=== PATIENT | male | born 1960 | race Caucasian/White ===

== ENCOUNTER 2019-02-09 19:12 | Inpatient (IN) | payer BC ==
[~2019-02-09] VITALS: Ht 188 cm; Wt 123.1 kg
[2019-02-09] MEDS ORDERED: ACETAMINOPHEN 500 MG TAB PO ONE (19:30)
[2019-02-09 20:08] LABS: Urine Bacteria FEW /hpf (None Seen); Urine Blood 2+ /uL (Negative); Urine Mucus FEW (None Seen); Urine Specific Gravity 1.028 (1.001-1.035); Urine WBC 127 /hpf (0 - 3)
[2019-02-09 22:06] LABS: Basophils # (auto) 0 uL; Basophils % (auto) 0.1 % (0.0-2.0); Eosinophils # (auto) 0 uL; Hemoglobin 15.9 g/dL (13.5-17.5); Lymphocytes # (auto) 0.4 uL; Lymphocytes % (auto) 2.5 % (10.0-50.0); Mean Corpuscular Hemoglobin 29.3 pg (28.0-32.0); Mean Corpuscular Hgb Conc. 34.6 g/dL (32.0-36.0); Mean Corpuscular Volume 84.7 fL (80.0-100.0); Monocytes # (auto) 0.6 uL; Monocytes % (auto) 3.6 % (0.0-12.0); Neutrophils # (auto) 15.4 uL; Neutrophils % (auto) 93.8 % (37.0-80.0); Platelet Count (auto) 208 10^3/uL (140-450); Red Blood Cells 5.43 10^6/uL (4.5-5.90); Red Cell Distribution Width 13.3 % (11.8-14.3); White Blood Cell 16.5 10^3/uL (4.4-10.8)
[2019-02-09 22:14] LABS: Albumin 3.8 g/dL (3.4-5.0); BUN/Creatinine Ratio 19.1; Calcium 9.2 mg/dL (8.5-10.1); Potassium 3.3 mmol/L (3.5-5.1)
[2019-02-09 22:16] LABS: Lactic Acid w/Reflex 2.5 mmol/L (0.4-2.0)
[2019-02-09 22:17] LABS: Total Protein 7.6 g/dL (6.4-8.2)
[2019-02-09] MEDS ORDERED: PIPERACILLIN-TAZOB 3.375GM 100 ML IV ONE (23:15)
[2019-02-09] MEDS ORDERED: VANCOMYCIN 1GM/250ML 250 ML IV ONE (23:15)
[2019-02-09] MEDS ORDERED: SODIUM CHLORIDE 0.9% 1,000 ML IV ONE (23:15)
[2019-02-10] MEDS ORDERED: TEMAZEPAM 15 MG CAP PO PRN (01:00)
[2019-02-10] MEDS: SODIUM CHLORIDE 0.9% 1,000 ML IV SCH ×3 (01:00→16:09)
[2019-02-10] MEDS ORDERED: DEXTROSE (50%) 50ML SYRG IV PRN (01:00)
[2019-02-10] MEDS ORDERED: ONDANSETRON HCL 4 MG/2 ML VIAL IV PRN (01:00)
[2019-02-10] MEDS ORDERED: LEVOFLOXACIN 500MG 100 ML IV ONE (02:00)
[2019-02-10] MEDS: ACETAMINOPHEN 325 MG TAB PO PRN ×4 (02:03→21:58)
[2019-02-10] MEDS ORDERED: MORPHINE SULF INJ 2 MG/ML SYRINGE 1ML IV PRN (02:15)
[2019-02-10] MEDS ORDERED: NITROGLYCERIN 0.4 MG SL TAB SL PRN (02:15)
[2019-02-10 03:28] VITALS: BP 124/63
--- NOTE | 2019-02-10 03:45 | NUR ---
received pt from er nurse poc reviewed
[2019-02-10] MEDS ORDERED: ATO40T PO (04:04)
[2019-02-10] MEDS ORDERED: LOSA100T22 PO (04:04)
[2019-02-10] MEDS ORDERED: METF-372 PO (04:04)
--- NOTE | 2019-02-10 04:55 | NUR ---
pt started converted to sinus tack 130, ax temp taken pts temp 103.4 ax aggressive cooling measures taken pt moved to rm 233 a colder room, pt started to become confused became nauseated threw up @ 400 dark emesis, zofran given for nausea
[2019-02-10 05:34] VITALS: BP 124/63
[2019-02-10] MEDS: PANTOPRAZOLE 40 MG TAB PO SCH (06:00)
[2019-02-10] MEDS: InsuLIN REG 1unit/0.01ml Soln (100units/ml) SC SCH ×4 (06:00→23:47)
[2019-02-10] MEDS: ACCU-CHEK COMFORT CURVE STRIP VI SCH ×4 (06:17→23:36)
--- NOTE | 2019-02-10 06:20 | NUR ---
hospitalist paged for orders zofran not effective
--- NOTE | 2019-02-10 06:25 | NUR ---
temp 102.6 ax b/p 124/63 [facility]
[2019-02-10] MEDS ORDERED: SODIUM CHLORIDE 0.9% 500 ML IV ONE (06:30)
[2019-02-10] MEDS ORDERED: PROMETHAZINE HCL 25 MG/ML 1ML IV ONE (06:30)
--- NOTE | 2019-02-10 06:40 | NUR ---
phenergan and 500 ml bolus given as ordered
--- NOTE | 2019-02-10 06:49 | NUR ---
resting quietly at this time no s/s of shivering or nausea, cooling measures continue
--- NOTE | 2019-02-10 08:00 | NUR ---
Opening Shift Note Assumed care of patient, awake and alert. No S/S of distress/SOB or pain. Instructed on POC and to call for assist PRN, will continue to monitor for changes Q1hr and PRN.
[2019-02-10 09:01] VITALS: BP 130/70
[2019-02-10] MEDS ORDERED: LOSARTAN POTASSIUM 50 MG TAB PO SCH (10:00)
--- NOTE | 2019-02-10 12:00 | NUR ---
Patient refused Insulin R SC administration for Accucheck-153mg/dl.
[2019-02-10 13:00] VITALS: BP 99/60
[2019-02-10] MEDS ORDERED: PIPERACILLIN-TAZOB 3.375GM 100 ML IV ONE (15:15)
[2019-02-10 16:51] LABS: BUN/Creatinine Ratio 16.7; Calcium 8.4 mg/dL (8.5-10.1); Potassium 4.4 mmol/L (3.5-5.1)
[2019-02-10 17:00] VITALS: BP 144/86
[2019-02-10] MEDS: PIPERACILLIN-TAZOB 3.375GM 100 ML IV SCH ×2 (18:25→23:35)
--- NOTE | 2019-02-10 19:24 | NUR ---
Opening Shift Note Assumed care of patient, awake and alert x 4. No S/S of distress/SOB. Bed is in lowest position and locked. Call light within reach. Board updated. Tele box number matches monitor and leads are in correct placement. Instructed on POC and to call for assist PRN, will continue to monitor for changes Q1hr and PRN.
[2019-02-10] MEDS: HYDROcodone-ACET 5/325MG TAB PO PRN (19:48)
--- NOTE | 2019-02-10 21:02 | NUR ---
Patient's temperature is 101.5 after administering Tylenol and Raven. Cooling measures started. Patient states he feels asymptomatic. Heart rate currently in the 110s. Will contact hospitalist if temperature does not go down.
[2019-02-10 21:16] VITALS: BP 126/73
--- NOTE | 2019-02-10 21:53 | NUR ---
Patient's temperature is 99.8 Cooling measures stopped. Will continue to monitor.
[2019-02-10] MEDS ORDERED: ATORVASTATIN 20 MG TAB PO SCH (22:00)
--- NOTE | 2019-02-10 22:58 | NUR ---
Patient's temperature is 98.0. Will continue to monitor.
[2019-02-11] MEDS ORDERED: LEVOFLOXACIN 500MG 100 ML IV SCH
[2019-02-11] MEDS: SODIUM CHLORIDE 0.9% 1,000 ML IV SCH ×3 (01:18→21:36)
[2019-02-11] MEDS: HYDROcodone-ACET 5/325MG TAB PO PRN (05:11)
[2019-02-11 05:20] VITALS: BP 125/72
[2019-02-11] MEDS: InsuLIN REG 1unit/0.01ml Soln (100units/ml) SC SCH ×4 (05:50→21:36)
--- NOTE | 2019-02-11 05:53 | NUR ---
patient refusing regular insulin per moderate sliding scale for blood glucose of 139 mg/dl because "I don't take insulin." Patient was educated on purpose of medication and it's possible side effects but patient is still choosing not to take medication.
[2019-02-11] MEDS: PANTOPRAZOLE 40 MG TAB PO SCH (05:59)
[2019-02-11] MEDS: PIPERACILLIN-TAZOB 3.375GM 100 ML IV SCH ×2 (05:59→11:43)
[2019-02-11] MEDS: ACCU-CHEK COMFORT CURVE STRIP VI SCH ×4 (06:00→21:36)
[2019-02-11 06:08] LABS: Basophils # (auto) 0 uL; Basophils % (auto) 0.2 % (0.0-2.0); Eosinophils # (auto) 0 uL; Eosinophils % (auto) 0.1 % (0.0-7.0); Hematocrit 42.2 % (41.0-53.0); Hemoglobin 14.8 g/dL (13.5-17.5); Lymphocytes # (auto) 0.6 uL; Lymphocytes % (auto) 5.6 % (10.0-50.0); Mean Corpuscular Hemoglobin 29.5 pg (28.0-32.0); Mean Corpuscular Hgb Conc. 35.1 g/dL (32.0-36.0); Mean Corpuscular Volume 83.9 fL (80.0-100.0); Monocytes # (auto) 0.5 uL; Neutrophils % (auto) 89.1 % (37.0-80.0); Nucleated Red Blood Cells % 0.1 %; Platelet Count (auto) 148 10^3/uL (140-450); Red Blood Cells 5.03 10^6/uL (4.5-5.90); Red Cell Distribution Width 13.1 % (11.8-14.3); White Blood Cell 10.1 10^3/uL (4.4-10.8)
[2019-02-11 06:27] LABS: BUN/Creatinine Ratio 17.2; Calcium 8.2 mg/dL (8.5-10.1); Potassium 3.5 mmol/L (3.5-5.1)
[2019-02-11 06:30] LABS: Magnesium 1.8 mg/dL (1.6-2.6)
--- NOTE | 2019-02-11 08:00 | NUR ---
Opening Shift Note Assumed care of patient, awake and alert. No S/S of distress/SOB or pain. Patient stated feeling better today than yesterday. Noted to have on and off fever still. Instructed on POC and to call for assist PRN, will continue to monitor for changes Q1hr and PRN.
[2019-02-11 09:00] VITALS: BP 118/68
[2019-02-11] MEDS: ACETAMINOPHEN 325 MG TAB PO PRN ×2 (09:36→18:51)
[2019-02-11] MEDS ORDERED: MAGNESIUM SULFATE 1GM/100ML 100 ML IV ONE (12:15)
[2019-02-11] MEDS ORDERED: DEXTROSE (50%) 50ML SYRG IV PRN (12:15)
[2019-02-11] MEDS ORDERED: cefTRIAXone 1GM/50ML D5W 50 ML IV ONE (12:15)
[2019-02-11 13:00] VITALS: BP 119/69
[2019-02-11 17:33] VITALS: BP 131/76
[2019-02-11 21:26] VITALS: BP 125/69
--- NOTE | 2019-02-11 21:56 | NUR ---
[facility] hospitalist to request pain medication be switched to a medication that does not contain Tylenol. Patient has been having a fever for over 24 hours off and on that is contained with Tylenol but patient is also reporting of a headache, 8 out of 10. Parrott is available fo the pain but the combined Tylenol in the Parrott with the Tylenol given for his fever is quite high, 3000 mg. Requesting alternative pain medication. Tylenol has not helped his headache, per patient. Patient also had a prostate biopsy on 02/08 and was ordered to not take aspirin or ibuprofen either.
--- NOTE | 2019-02-11 22:06 | NUR ---
Spoke to AISHWARYA Nava who ordered Morphine 2mg IV Once. Order repeated, verified, and placed.
[2019-02-11] MEDS ORDERED: MORPHINE SULF INJ 2 MG/ML SYRINGE 1ML IV ONE (22:30)
[2019-02-12] MEDS: HYDROcodone-ACET 5/325MG TAB PO PRN ×2 (04:03→08:42)
[2019-02-12 05:19] VITALS: BP 135/78
[2019-02-12 05:22] LABS: Basophils # (auto) 0 uL; Basophils % (auto) 0.3 % (0.0-2.0); Eosinophils # (auto) 0 uL; Eosinophils % (auto) 0.4 % (0.0-7.0); Hematocrit 40.6 % (41.0-53.0); Hemoglobin 14.3 g/dL (13.5-17.5); Lymphocytes # (auto) 0.8 uL; Lymphocytes % (auto) 10.8 % (10.0-50.0); Mean Corpuscular Hemoglobin 29.7 pg (28.0-32.0); Mean Corpuscular Hgb Conc. 35.2 g/dL (32.0-36.0); Mean Corpuscular Volume 84.4 fL (80.0-100.0); Monocytes # (auto) 0.7 uL; Neutrophils # (auto) 6.1 uL; Neutrophils % (auto) 79.5 % (37.0-80.0); Platelet Count (auto) 156 10^3/uL (140-450); Red Blood Cells 4.82 10^6/uL (4.5-5.90); Red Cell Distribution Width 13.2 % (11.8-14.3); White Blood Cell 7.6 10^3/uL (4.4-10.8)
[2019-02-12 05:35] LABS: Potassium 3.7 mmol/L (3.5-5.1)
[2019-02-12 05:39] LABS: BUN/Creatinine Ratio 16.9; Magnesium 2.2 mg/dL (1.6-2.6)
[2019-02-12] MEDS: InsuLIN REG 1unit/0.01ml Soln (100units/ml) SC SCH ×2 (05:54→11:30)
[2019-02-12] MEDS: PANTOPRAZOLE 40 MG TAB PO SCH (05:55)
[2019-02-12] MEDS: ACCU-CHEK COMFORT CURVE STRIP VI SCH ×2 (05:55→11:50)
[2019-02-12] MEDS: SODIUM CHLORIDE 0.9% 1,000 ML IV SCH (05:56)
[2019-02-12 08:00] VITALS: BP 130/70
[2019-02-12] MEDS: cefTRIAXone 1GM/50ML D5W 50 ML IV SCH (08:41)
[2019-02-12 09:00] VITALS: BP 133/82
[2019-02-12 13:00] VITALS: BP 156/89
[2019-02-12] MEDS: ACETAMINOPHEN 325 MG TAB PO PRN (16:56)
[2019-02-12 17:00] VITALS: BP 124/61
[2019-02-12] MEDS ORDERED: TAMSULOSIN HYDROCHLORIDE 0.4 MG CAP PO SCH (18:00)
--- NOTE | 2019-02-12 18:00 | NUR ---
Pt alert and oriented, showing no change from initial assessment. Pt medicated, times two, during this shift, for c/o headache, with good effectiveness. No other c/o pain or discomfort.
--- NOTE | 2019-02-12 19:05 | NUR ---
Opening Shift Note Assumed care of patient, awake and alert. No S/S of distress/SOB or pain. Instructed on POC and to call for assist PRN, will continue to monitor for changes Q1hr and PRN. Side rails up x2. Bed locked in lowest position. Call light within reach.
[2019-02-12 21:00] VITALS: BP 122/67
[2019-02-13 04:30] VITALS: BP 139/77
[2019-02-13 05:18] LABS: Basophils # (auto) 0 uL; Basophils % (auto) 0.4 % (0.0-2.0); Eosinophils # (auto) 0.1 uL; Eosinophils % (auto) 1.2 % (0.0-7.0); Hemoglobin 13.8 g/dL (13.5-17.5); Lymphocytes # (auto) 1.2 uL; Lymphocytes % (auto) 17.5 % (10.0-50.0); Mean Corpuscular Hgb Conc. 34.6 g/dL (32.0-36.0); Mean Corpuscular Volume 83.9 fL (80.0-100.0); Monocytes % (auto) 15.3 % (0.0-12.0); Neutrophils # (auto) 4.4 uL; Neutrophils % (auto) 65.6 % (37.0-80.0); Nucleated Red Blood Cells % 0.1 %; Platelet Count (auto) 185 10^3/uL (140-450); Red Blood Cells 4.77 10^6/uL (4.5-5.90); Red Cell Distribution Width 13.5 % (11.8-14.3); White Blood Cell 6.7 10^3/uL (4.4-10.8)
[2019-02-13] MEDS: PANTOPRAZOLE 40 MG TAB PO SCH (05:55)
[2019-02-13] MEDS: ACETAMINOPHEN 325 MG TAB PO PRN (05:56)
--- NOTE | 2019-02-13 06:14 | NUR ---
Post void residual 0 ml
--- NOTE | 2019-02-13 07:05 | NUR ---
Endorsed care to day shift RN.
[2019-02-13 08:00] VITALS: BP 130/70
[2019-02-13] MEDS: cefTRIAXone 1GM/50ML D5W 50 ML IV SCH (08:14)
[2019-02-13 09:00] VITALS: BP 125/80
[2019-02-13 13:00] VITALS: BP 136/77
[2019-02-13 14:18] VITALS: BP 136/77
[2019-02-13 14:40] VITALS: BP 136/77
--- NOTE | 2019-02-13 15:58 | NUR ---
Estimated needs based on AJBW 95.6 kg for weight maintenance 1814-9608 kcal (22-24 kcal/kg) 76-96 g protein (0.8-1.0 g/kg) Addendum: 02/13/19 at [address] Amended: Links added.
== END 2019-02-13 15:30 | disposition home or self-care (01) | DRG 871 ==
LOC: ER 19:12 → TELE-EAST 19:13
PROVIDERS: ADMIT Nurse Practitioner; ATTEND Internal Medicine
DX: A41.51 Sepsis due to Escherichia coli [E. coli] (principal); N17.0 Acute kidney failure with tubular necrosis; N39.0 Urinary tract infection, site not specified; T81.40XA Infection following a procedure, unspecified, initial encounter; E11.9 Type 2 diabetes mellitus without complications; E78.5 Hyperlipidemia, unspecified; I10 Essential (primary) hypertension; K76.0 Fatty (change of) liver, not elsewhere classified; N40.0 Benign prostatic hyperplasia without lower urinary tract symptoms; Y84.8 Other medical procedures as the cause of abnormal reaction of the patient, or of later complication, without mention of misadventure at the time of the procedure; Y92.89 Other specified places as the place of occurrence of the external cause
CPT/HCPCS: 36415; 71045; 74176; 80048; 80053; 80061; 81001; 82962; 83036; 83605; 83735; 83880; 83970; 84132; 84550; 85025; 87040; 87077; 87086; 87088; 87186; 96361; 96365; 96366; 96367; G0378; J0696; J1956; J2405; J2543